=== PATIENT | female | born 1950 | race Caucasian/White ===

== ENCOUNTER 2016-06-19 14:58 | Emergency (ER) | payer OTHER ==
[2016-06-19 15:08] VITALS: PULSE 70; RESP 18; TEMP 97.5
[2016-06-19] MEDS ORDERED: ONDANSETRON 4 MG/2 ML VIAL IVP ONE (15:12)
[2016-06-19] MEDS ORDERED: NS 1,000 ML IV ONE (15:12)
--- NOTE | 2016-06-19 15:12 | EDPHY ---
H & P Stated Complaint: Arrived yesterday from [place];today feels shaky,legs cramps, nausea HPI/ROS: HPI CHIEF COMPLAINT: nauseous, muscle cramps, shakiness, recent travel HISTORY OF PRESENT ILLNESS: the patient very pleasant 65-year-old female, significant past medical history for hyperlipidemia, thyroid disease, presents to the emergency room with nausea, muscle cramps all over body, shakiness, and recently traveled from [place]. She states that she was climbing [place] for the past 2 weeks. She flew in yesterday. Main complaint is nausea, shakiness, muscle cramps. She thinks that maybe her electrolytes are disturbed including potassium. She did take Diamox for elevation while she was there. She held her HCTZ. She did have 1 episode of diarrhea that she took azithromycin for. The diarrhea resolved. She has not been vomiting. She has no chest pain or shortness of breath. No significant leg swelling. No rash. Does complain also of bilateral lower extremity bug bites. No fever, no headache, no neck pain, no neck stiffness no meningeal signs. Past Medical History: Hyperlipidemia, thyroid disease, hypertension Past Surgical History: no recent surgical history Social History: Denies daily use of drugs alcohol tobacco products, lives in [place] locally at bedside Family History: Noncontributory ROS REVIEW OF SYSTEMS: A comprehensive 10 point review of systems is otherwise negative aside from elements mentioned in the history of present illness. Exam Constitutional appears well nontoxic, triage nursing summary reviewed, vital signs reviewed, awake/alert. Eyes normal conjunctivae and sclera, EOMI, PERRLA. HENT normal inspection, atraumatic, moist mucus membranes, no epistaxis, neck supple/ no meningismus, no raccoon eyes. Respiratory clear to auscultation bilaterally, normal breath sounds, no respiratory distress, no wheezing. Cardiovascular rate normal, regular rhythm, no murmur, no edema, distal pulses normal. Gastrointestinal soft, non-tender, no rebound, no guarding, normal bowel sounds, no distension, no pulsatile mass. Genitourinary no CVA tenderness. Musculoskeletal no midline vertebral tenderness, full range of motion, no calf swelling, no tenderness of extremities, no meningismus, good pulses, neurovascularly intact. Skin bilateral bug bites lower ankles, no significant rash, no petechiae, no purpura, no infected lesions, healing bug bites pink, warm, & dry, no rash, skin atraumatic. Neurologic awake, alert and oriented x 3, AAOx3, moves all 4 extremities equally, motor intact, sensory intact, CN II-XII intact, normal cerebellar, normal vision, normal speech. Psychiatric normal mood/affect. Heme/Lymph/Immune no lymphadenopathy. Differential Diagnosis: Includes but is not limited to in a particular order electrolyte disturbance, dehydration viral syndrome, elevation change, fatigue from trauma Medical Decision Making: plan for this patient IV establishment IV fluid bolus IV Zofran for nausea, EKG, troponin, electrolytes. Re-evaluation: EKG interpretation by me on record in [employer] system. Impression time of EKG 1525, sinus rhythm rate of 67 left axis deviation present. Slight motion artifact inferior leads but no acute ischemia. Specifically no ST elevation ST depression T-wave abnormalities. Unremarkable EKG. 1614; re-examination at this time patient resting comfortably. Labs reviewed with patient and at bedside they feel comfortable discharge planning. No signs of infection, no signs of fever. Normal vital signs. She is feeling better after IV fluid. Slightly low hyponatremia. Feeling better after IV fluids. Recommend rest, stay well-hydrated. Return emergency room if worsening symptoms. Source: Patient - Personal History Current Tetanus Diphtheria and Acellular Pertussis (TDAP): Yes - Medical/Surgical History Other PMH: healthy - Social History Smoking Status: Never smoked Constitutional: Initial Vital Signs Temperature (C) 36.4 C 06/19/16 15:00 Heart Rate 70 06/19/16 15:00 Respiratory Rate 18 06/19/16 15:00 Blood Pressure 141/78 H 06/19/16 15:00 O2 Sat (%) 99 06/19/16 15:00 Allergies/Adverse Reactions: No Known Allergies Allergy (Unverified 06/19/16 15:08) Home Medications: Medication Instructions Recorded Atorvastatin Calcium 06/19/16 Hydrochlorothiazide [HCTZ (*)] 12.5 mg PO 06/19/16 Levothyroxine [Synthroid 50 mcg 50 mcg PO DAILY06 06/19/16 (*)] Medical Decision Making - Data Points Laboratory Results: Laboratory Results 06/19/16 15:26 06/19/16 15:26 04/19/17 04/19/17 04/19/17 15:26 15:26 15:26 WBC 7.59 10^3/uL 10^3/uL (3.80-9.50) RBC 4.46 10^6/uL 10^6/uL (4.18-5.33) Hgb 14.1 g/dL g/dL (12.6-16.3) Hct 41.4 % % (38.0-47.0) MCV 92.8 fL fL (81.5-99.8) MCH 31.6 pg pg (27.9-34.1) MCHC 34.1 g/dL g/dL (32.4-36.7) RDW 11.8 % % (11.5-15.2) Plt Count 273 10^3/uL 10^3/uL (150-400) MPV 9.2 fL fL (8.7-11.7) Neut % (Auto) 70.8 % % (39.3-74.2) Lymph % (Auto) 20.8 % % (15.0-45.0) Ashley % (Auto) 6.5 % % (4.5-13.0) Eos % (Auto) 1.3 % % (0.6-7.6) Baso % (Auto) 0.3 % % (0.3-1.7) Nucleat RBC Rel Count 0.0 % % (0.0-0.2) Absolute Neuts (auto) 5.38 10^3/uL 10^3/uL (1.70-6.50) Absolute Lymphs (auto) 1.58 10^3/uL 10^3/uL (1.00-3.00) Absolute Monos (auto) 0.49 10^3/uL 10^3/uL (0.30-0.80) Absolute Eos (auto) 0.10 10^3/uL 10^3/uL (0.03-0.40) Absolute Basos (auto) 0.02 10^3/uL 10^3/uL (0.02-0.10) Absolute Nucleated RBC 0.00 10^3/uL 10^3/uL (0-0.01) Immature Gran % 0.3 % % (0.0-1.1) Immature Gran # 0.02 10^3/uL 10^3/uL (0.00-0.10) PT 13.6 SEC SEC (12.0-15.0) INR 1.05 (0.83-1.16) APTT 27.5 SEC SEC (23.0-38.0) Sodium 131 mEq/L L mEq/L (134-144) Potassium 3.5 mEq/L mEq/L (3.5-5.2) Chloride 95 mEq/L L mEq/L (97-110) Carbon Dioxide 24 mEq/l mEq/l (22-31) Anion Gap 12 mEq/L mEq/L (8-16) BUN 10 mg/dL mg/dL (7-23) Creatinine 0.6 mg/dL mg/dL (0.6-1.0) Estimated GFR > 60 Glucose 110 mg/dL H mg/dL (70-100) Calcium 9.8 mg/dL mg/dL (8.5-10.4) Magnesium 1.6 mg/dL mg/dL (1.6-2.3) Total Bilirubin 1.0 mg/dL mg/dL (0.1-1.4) Conjugated Bilirubin 0.4 mg/dL mg/dL (0.0-0.5) Unconjugated Bilirubin 0.6 mg/dL mg/dL (0.0-1.1) AST 25 IU/L IU/L (14-46) ALT 35 IU/L IU/L (9-52) Alkaline Phosphatase 68 IU/L IU/L (38-126) Creatine Kinase 110 IU/L IU/L (0-156) CK-MB (CK-2) Fraction 3.07 ng/mL ng/mL (0-3.19) Troponin I < 0.012 ng/mL ng/mL (0-0.034) NT-Pro-B Natriuret Pep 92 pg/mL pg/mL (0-125) Total Protein 7.9 g/dL g/dL (6.3-8.2) Albumin 4.8 g/dL g/dL (3.5-5.0) Lipase 96.0 IU/L IU/L (23-300) 06/19/16 15:21 WBC RBC Hgb Hct MCV MCH MCHC RDW Plt Count MPV Neut % (Auto) Lymph % (Auto) Ashley % (Auto) Eos % (Auto) Baso % (Auto) Nucleat RBC Rel Count Absolute Neuts (auto) Absolute Lymphs (auto) Absolute Monos (auto) Absolute Eos (auto) Absolute Basos (auto) Absolute Nucleated RBC Immature Gran % Immature Gran # PT INR APTT Sodium Potassium Chloride Carbon Dioxide Anion Gap BUN Creatinine Estimated GFR Glucose Calcium Magnesium Pending Total Bilirubin Conjugated Bilirubin Unconjugated Bilirubin AST ALT Alkaline Phosphatase Creatine Kinase CK-MB (CK-2) Fraction Troponin I NT-Pro-B Natriuret Pep Total Protein Albumin Lipase Medications Given: Discontinued Medications Sodium Chloride (Ns) 1,000 mls @ 0 mls/hr IV ONCE ONE PRN Reason: Wide Open Stop: 06/19/16 15:13 Last Admin: 06/19/16 15:34 Dose: 1,000 mls Ondansetron HCl (Zofran) 4 mg IVP EDNOW ONE Stop: 06/19/16 15:13 Last Admin: 06/19/16 15:35 Dose: 4 mg Departure - Departure Disposition: Home, Routine, Self-Care Clinical Impression: Dehydration Condition: Good Instructions: Dehydration (ED), Fatigue (ED) Additional Instructions: 1.Rest 2. Drink plenty of fluid. 3. return emergency room if you have any worsening symptoms questions or concerns. Referrals: Duarte Pack MD [Primary Care Provider] - As per Instructions
--- NOTE | 2016-06-19 15:27 | CPEKG ---
Heart Rate: 67 RR Interval: 896 P-R Interval: 146 QRSD Interval: 92 QT Interval: 420 QTC Interval: 444 P [place]: 0 QRS [place]: -37 T Wave [place]: 5 EKG Severity - OTHERWISE NORMAL ECG - EKG Impression: SINUS RHYTHM EKG Impression: LEFT AXIS DEVIATION Electronically Signed By: Estuardo Marks 19-Jun-2016 22:24:26
[2016-06-19 15:30] LABS: % IMMATURE GRANULYOCYTES 0.3 % (0.0-1.1); ABSOLUTE IMMATURE GRANULOCYTES 0.02 10^3/uL (0.00-0.10); ADD DIFF? NO; ADD MORPH? NO; ADD SCAN? NO; ATYPICAL LYMPHOCYTE FLAG 20 (0-99); FRAGMENT RBC FLAG 0 (0-99); HEMATOCRIT 41.4 % (38.0-47.0); HEMOGLOBIN 14.1 g/dL (12.6-16.3); LEFT SHIFT FLG 0 (0-99); LIPEMIA HEMOLYSIS FLAG 90 (0-99); MEAN CELL HEMOGLOBIN 31.6 pg (27.9-34.1); MEAN CELL HEMOGLOBIN CONCENTR. 34.1 g/dL (32.4-36.7); MEAN CELL VOLUME 92.8 fL (81.5-99.8); MEAN PLATELET VOLUME 9.2 fL (8.7-11.7); PLATELET CLUMPS FLAG 0 (0-99); PLATELET COUNT 273 10^3/uL (150-400); RED BLOOD CELL COUNT 4.46 10^6/uL (4.18-5.33); RED CELL DISTRIBUTION WIDTH 11.8 % (11.5-15.2)
[2016-06-19 15:38] LABS: INR 1.05 (0.83-1.16); PROTIME(PATIENT) 13.6 SEC (12.0-15.0)
[2016-06-19 15:39] LABS: APTT 27.5 SEC (23.0-38.0)
[2016-06-19 15:53] LABS: ALANINE AMINOTRANSFERASE 35 IU/L (9-52); ALBUMIN 4.8 g/dL (3.5-5.0); ALKALINE PHOSPHATASE 68 IU/L (38-126); ANION GAP 12 mEq/L (8-16); ASPARTATE AMINOTRANSFERASE 25 IU/L (14-46); BILIRUBIN-CONJUGATED 0.4 mg/dL (0.0-0.5); BILIRUBIN-UNCONJUGATED 0.6 mg/dL (0.0-1.1); CALCIUM 9.8 mg/dL (8.5-10.4); CARBON DIOXIDE 24 mEq/l (22-31); CHLORIDE 95 mEq/L (97-110); CREATININE 0.6 mg/dL (0.6-1.0); GLOMERULAR FILTRATION RATE > 60; GLUCOSE 110 mg/dL (70-100); MAGNESIUM 1.6 mg/dL (1.6-2.3); POTASSIUM 3.5 mEq/L (3.5-5.2); SODIUM 131 mEq/L (134-144); TOTAL PROTEIN 7.9 g/dL (6.3-8.2)
[2016-06-19 16:05] LABS: CREATINE KINASE-MB FRACTION 3.07 ng/mL (0-3.19); TROPONIN I < 0.012 ng/mL (0-0.034)
[2016-06-19] MEDS: NS 1,000 ML IV ONE ×2 (16:30→16:34)
[2016-06-19 16:32] VITALS: BP 127/72; O2SAT 97
== END 2016-06-19 17:00 | disposition home or self-care (01) ==
DX: E86.0 Dehydration (principal); I10 Essential (primary) hypertension
CPT/HCPCS: 93005; 96361; 96374; 99284; J2405

== ENCOUNTER → 2016-11-20 | Outpatient (CLI) | payer OTHER | LOC: FIMAGING 07:44 | PROVIDERS: ATTEND Family Medicine | DX: Z12.31 Encounter for screening mammogram for malignant neoplasm of breast (principal); Z80.3 Family history of malignant neoplasm of breast | CPT/HCPCS: G0202 ==

== ENCOUNTER → 2016-11-22 | Outpatient (CLI) | payer OTHER | LOC: FIMAGING 12:35 | PROVIDERS: ATTEND Internal Medicine | DX: Z13.820 Encounter for screening for osteoporosis (principal); M81.0 Age-related osteoporosis without current pathological fracture ==

== ENCOUNTER → 2017-11-25 | Outpatient (CLI) | payer OTHER, MEDICARE | LOC: FIMAGING 07:41 | PROVIDERS: ATTEND Family Medicine | DX: Z12.31 Encounter for screening mammogram for malignant neoplasm of breast (principal) ==